=== PATIENT | male | born 1960 | race Caucasian/White ===

== ENCOUNTER 2021-02-09 09:04 | Day surgery (SDC) | payer OTHER ==
--- NOTE | 2021-02-08 11:27 | HP ---
DATE OF SURGERY: 02/09/2021 HISTORY OF PRESENT ILLNESS: The patient presents for colonoscopy. The patient had a scope about ten years ago. He denies any symptoms currently. He has no family history of colon cancer. PAST MEDICAL HISTORY: Hyperlipidemia, hypertension, diabetes, multiple sclerosis (MS). PAST SURGICAL HISTORY: Appendectomy. Tonsillectomy. ALLERGIES: NKDA. MEDICATIONS: Testosterone, metformin, lisinopril, atorvastatin, anastrozole. FAMILY HISTORY: Diabetes, breast cancer, chronic obstructive pulmonary disease. SOCIAL HISTORY: None. REVIEW OF SYSTEMS: CONSTITUTIONAL: Denies fever or chills. CHEST: Denies shortness of breath. CVS: Denies chest pain. ABDOMEN: Denies abdominal pain, nausea, vomiting, diarrhea, constipation or rectal bleeding. PHYSICAL EXAMINATION: GENERAL: No acute distress. CHEST: Nonlabored. No shortness of breath. CVS: Regular rate and rhythm. ABDOMEN: Soft, nontender. IMPRESSION: Screening. PLAN: Colonoscopy with Dr. Lewis Villanueva. As dictated by Promise Conteh NP.
[~2021-02-09 09:04] MED LIST: Lactated Ringers 1,000 ML IV SCH
[2021-02-09] MEDS ORDERED: DIPRIVAN 200 MG/20 ML IV ONE ×2 (11:01→11:24)
[2021-02-09 12:11] VITALS: O2SAT 98
[2021-02-09 12:13] VITALS: BP 110/62; PULSE 58
--- NOTE | 2021-02-09 12:55 | OP ---
SURGERY DATE/TIME: 02/09/2021 1100 PREOPERATIVE DIAGNOSIS: Screening. POSTOPERATIVE DIAGNOSIS: Redundant colon otherwise normal. PROCEDURE: Colonoscopy complete to cecum. SURGEON: Lewis Villanueva M.D. ANESTHESIA: MAC. COMPLICATIONS: None. CONDITION: Stable. INDICATION: A patient requiring evaluation. DESCRIPTION OF PROCEDURE: Taken to endoscopy. Left lateral decubitus position. Anal digital examination satisfactory. Scope introduced. It buckled quite a bit in the sigmoid this was able to be lightly held, moderately held at times. Ascending, splenic, transverse. After some withdrawal and re-advancement and patience, the right side was able to be cannulated all the way down into base of cecum. Base of the cecum, ileocecal valve was normal. Ascending, hepatic, transverse, splenic, descending, sigmoid, rectum, anus there was very light diverticulosis of the sigmoid basically normal colon other than being redundant. Five year follow up is suggested.
== END 2021-02-09 12:17 | disposition home or self-care (01) ==
LOC: SDC 09:04
PROVIDERS: ATTEND Surgery
DX: Z12.11 Encounter for screening for malignant neoplasm of colon (principal); K57.30 Diverticulosis of large intestine without perforation or abscess without bleeding; E11.9 Type 2 diabetes mellitus without complications; Z79.899 Other long term (current) drug therapy
CPT/HCPCS: 82947; J2704

== ENCOUNTER 2021-05-03 05:49 | Emergency (ER) | payer BC, OTHER ==
[2021-05-03] MEDS ORDERED: SUBLIMAZE 100 MCG/2 ML IV ONE (06:25)
[2021-05-03] MEDS ORDERED: Zofran 4 MG/2 ML VIAL IV ONE (06:25)
[2021-05-03] MEDS ORDERED: Zofran 4 MG/2 ML VIAL ONE (06:28)
[2021-05-03] MEDS ORDERED: SUBLIMAZE 100 MCG/2 ML ONE (06:30)
--- NOTE | 2021-05-03 06:33 | ERPHSYRPT ---
- History of Present Illness Historian: patient, other (Spouse) Exam Limitations: no limitations Patient Subjective Stated Complaint: pt states he has been having pain in his lt side for last 2 days. today pain has increased. pain in lt side below ribs and at times radiating around to rt abd Triage Nursing Assessment: pt alert and oriented, answers questions approp.pt am bulatory with steady gait noted. respirations nonlabored with lungs cta. abd soft and nontender with bowel sounds noted x4 quads. urine yellow and clear. pt reports no diff urinating. Timing/Duration: other Activities at Onset: rest Quality: sharpness Pain Radiation: flank (L flank) Severity of Pain-Max: severe Severity of Pain-Current: mild Modifying Factors: Improves With: nothing Associated Symptoms: neck pain, No chest pain, No diaphoresis, No diarrhea, No fever/chills, No fatigue, No headache, No heartburn, No loss of appetite, No nausea, No rash, No shortness of breath, No syncope, No vomiting, No weakness Previous symptoms: no prior history Hx Tetanus, Diphtheria Vaccination/Date Given: Yes Hx Influenza Vaccination/Date Given: Yes Hx Pneumococcal Vaccination/Date Given: No Immunizations Up to Date: Yes <ELVA MAYA - Last Filed: 05/03/21 07:05> <ADELA RAMIREZ - Last Filed: 05/03/21 09:09> - History of Present Illness Physician History: 60 yo wm w L flank pain x 2days. Pain is sharp,3 out of 10, and nothing makes better-worse. He has never had the pain before and denies N/V/D/dysuria/h ematuria. Pt is fully vaccinated but has a mild cough. (ELVA MAYA) Allergies/Adverse Reactions: No Known Drug Allergies Allergy (Verified 05/03/21 06:12) Home Medications: Anastrozole 0.5 mg PO WEEKLY 09/19/20 [History] Multivitamin 1 each PO DAILY 09/19/20 [History] Atorvastatin Calcium [Lipitor 20MG Tablet] 20 mg PO DAILY 02/02/21 [History] Metformin HCl 500 mg [Glucophage 500 MG] 500 mg PO DAILY 02/02/21 [History] lisinopriL [Zestril] 2.5 mg PO DAILY 02/09/21 [History] Ocrelizumab [Ocrevus] 300 mg IV UD 03/06/21 [History] Testosterone Enanthate [Xyosted] 24 mg SQ WEEKLY 03/06/21 [History] Travel Risk - International Travel Have you traveled outside of the country in past 3 weeks: No - Coronavirus Screening Are you exhibiting any of the following symptoms?: No Close contact with a COVID-19 positive Pt in past 14-21 Days: No - Vaccine Status Have you recieved a Covid-19 vaccination: Yes 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: [employer] <ELVA MAYA - Last Filed: 05/03/21 07:05> - Review of Systems Constitutional: No Symptoms Eyes: No Symptoms Ears, Nose, & Throat: No Symptoms Respiratory: No Symptoms, Cough Cardiac: No Symptoms Abdominal/Gastrointestinal: No Symptoms Genitourinary Symptoms: No Symptoms, Flank Pain Musculoskeletal: No Symptoms Skin: No Symptoms Neurological: No Symptoms Psychological: No Symptoms Endocrine: No Symptoms Hematologic/Lymphatic: No Symptoms Immunological/Allergic: No Symptoms <ELVA MAYA - Last Filed: 05/03/21 07:05> - Past Medical History Pertinent Past Medical History: Yes Neurological History: Other ENT History: No Pertinent History Cardiac History: No Pertinent History Respiratory History: No Pertinent History Endocrine Medical History: No Pertinent History Musculoskeletal History: No Pertinent History GI Medical History: No Pertinent History History: No Pertinent History Psycho-Social History: No Pertinent History Male Reproductive Disorders: No Pertinent History Other Medical History: MS dx in 2009, bph, mild renal insuff, pre-diabetic - Past Surgical History Past Surgical History: Yes Neuro Surgical History: No Pertinent History Cardiac: No Pertinent History Respiratory: No Pertinent History Gastrointestinal: Appendectomy Genitourinary: No Pertinent History Musculoskeletal: Orthopedic Surgery Male Surgical History: No Pertinent History Other Surgical History: C3 vertebra removed - Social History Smoking Status: Never smoker Exposure to second hand smoke: No Drug Use: none Patient Lives Alone: No <ELVA MAYA - Last Filed: 05/03/21 07:05> - Physical Exam General Appearance: no apparent distress Eye Exam: PERRL/EOMI, eyes nml inspection Ears, Nose, Throat Exam: normal ENT inspection, TMs normal, pharynx normal, moist mucous membranes Neck Exam: No meningismus, No mass, No Brudzinski, No Kernig's Respiratory Exam: crackles/rales (L base), No respiratory distress Cardiovascular Exam: regular rate/rhythm, normal heart sounds, normal peripheral pulses, No murmur Gastrointestinal/Abdomen Exam: soft, normal bowel sounds Back Exam: CVA tenderness (Mild Left) Extremity Exam: normal inspection, normal range of motion Neurologic Exam: alert, oriented x 3, cooperative, 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 as tested, normal mood/affect, sensation nml, No motor deficits, No sensory deficit Skin Exam: normal color, warm, dry Lymphatic Exam: No adenopathy SpO2 Interpretation: normal SpO2: 100 O2 Delivery: Room Air <ELVA MAYA - Last Filed: 05/03/21 07:05> - Nursing Vital Signs Nursing Vital Signs: Initial Vital Signs Temperature 97.8 F 05/03/21 05:56 Pulse Rate 72 05/03/21 05:56 Respiratory Rate 16 05/03/21 05:56 Blood Pressure 113/65 05/03/21 05:56 O2 Sat by Pulse Oximetry 100 05/03/21 05:56 Pain Scale Pain Intensity 2 WNL (ELVA MAYA) - Course Nursing assessment & vital signs reviewed: Yes - Radiology Exams Chest X-ray Interpretation: Interpreted by me (NAD) <ELVA MAYA - Last Filed: 05/03/21 07:05> Ordered Tests: Active Orders 24 hr Category Date Time Status ABDOMEN AND PELVIS W CONTRAST [CT] Stat Exams 05/03/21 07:12 Completed CHEST 1 VIEW (PORTABLE) Stat Exams 05/03/21 06:32 Taken CHEST WITH CONTRAST [CT] Stat Exams 05/03/21 07:11 Completed AMYLASE Stat Lab 05/03/21 05:30 Completed CBC W DIFF Stat Lab 05/03/21 05:30 Completed CMP Stat Lab 05/03/21 05:30 Completed D-DIMER QUANTITATIVE Stat Lab 05/03/21 05:30 Completed LIPASE Stat Lab 05/03/21 05:30 Completed TROPONIN Q3H Lab 05/03/21 05:30 Completed TROPONIN Q3H Lab 05/03/21 08:27 Received TROPONIN Q3H Lab 05/03/21 12:30 Ordered TROPONIN Q3H Lab 05/03/21 15:30 Ordered TROPONIN Q3H Lab 05/03/21 18:30 Ordered UA W/RFX UR CULTURE Stat Lab 05/03/21 06:36 Completed Medication Summary Discontinued Medications Generic Name Dose Route Start Last Admin Trade Name Marcos PRN Reason Stop Dose Admin Fentanyl Citrate 25 mcg 05/03/21 06:25 05/03/21 06:33 Fentanyl Citrate 100 Mcg/2 Ml* Vial IV 05/03/21 06:26 25 mcg STAT ONE Administration Fentanyl Citrate Confirm 05/03/21 06:30 Fentanyl Citrate 100 Mcg/2 Ml* Vial Administered 05/03/21 06:31 Dose 100 mcg .ROUTE .STK-MED ONE Ondansetron HCl 4 mg 05/03/21 06:25 05/03/21 06:33 Ondansetron Hcl 4 Mg/2 Ml Vial IV 05/03/21 06:26 4 mg STAT ONE Administration Ondansetron HCl Confirm 05/03/21 06:28 Ondansetron Hcl 4 Mg/2 Ml Vial Administered 05/03/21 06:29 Dose 4 mg .ROUTE .STK-MED ONE Lab/Rad Data: Laboratory Result Diagrams 05/03/21 05:30 05/03/21 05:30 Laboratory Results 05/03/21 05/03/21 05/03/21 Range/Units 06:36 05:30 05:30 WBC (4.0-10.5) K/mm3 RBC (4.1-5.6) M/mm3 Hgb (12.5-18.0) gm/dl Hct (42-50) % MCV (78-100) fl MCH (26-32) pg MCHC (32-36) g/dl RDW (11.5-14.0) % Plt Count (150-450) K/mm3 MPV (7.5-11.0) fl Gran % (36.0-66.0) % Eos # (Auto) (0-0.5) Absolute Lymphs (auto) (1.0-4.6) Absolute Monos (auto) (0.0-1.3) Lymphocytes % (24.0-44.0) % Monocytes % (0.0-12.0) % Eosinophils % (0.00-5.0) % Basophils % (0.0-0.4) % Absolute Granulocytes (1.4-6.9) Basophils # (0-0.4) D-Dimer 863 H* (215-500) ng/mL Sodium (137-145) mmol/L Potassium (3.5-5.1) mmol/L Chloride (98-107) mmol/L Carbon Dioxide (22-30) mmol/L Anion Gap (5-15) MEQ/L BUN (9-20) mg/dL Creatinine (0.66-1.25) mg/dL Estimated GFR ML/MIN Glucose (74-106) mg/dL Calcium (8.4-10.2) mg/dL Total Bilirubin (0.2-1.3) mg/dL AST (17-59) U/L ALT (0-50) U/L Alkaline Phosphatase (38-126) U/L Troponin I < 0.012 (0.000-0.034) ng/mL Serum Total Protein (6.3-8.2) g/dL Albumin (3.5-5.0) g/dL Amylase (30-110) U/L Lipase (23-300) U/L Urine Color YELLOW (YELLOW) Urine Appearance CLEAR (CLEAR) Urine pH 5.0 (5-6) Ur Specific [place] 1.023 (1.005-1.025) Urine Protein NEGATIVE (Negative) Urine Ketones NEGATIVE (NEGATIVE) Urine Blood NEGATIVE (0-5) Cesar/ul Urine Nitrite NEGATIVE (NEGATIVE) Urine Bilirubin NEGATIVE (NEGATIVE) Urine Urobilinogen NEGATIVE (0-1) mg/dL Ur Leukocyte Esterase NEGATIVE (NEGATIVE) Urine WBC (Auto) NONE (0-5) /HPF Urine RBC (Auto) NONE (0-2) /HPF U Epithel Cells (Auto) NONE (FEW) /HPF Urine Bacteria (Auto) NONE SEEN (NEGATIVE) /HPF Urine Mucus (Auto) SLIGHT (NEGATIVE) /HPF Urine Culture Reflexed NO (NO) Urine Glucose NEGATIVE (NEGATIVE) mg/dL 05/03/21 05/03/21 Range/Units 05:30 05:30 WBC 10.5 (4.0-10.5) K/mm3 RBC 4.32 (4.1-5.6) M/mm3 Hgb 12.6 (12.5-18.0) gm/dl Hct 38.4 L (42-50) % MCV 88.9 (78-100) fl MCH 29.2 (26-32) pg MCHC 32.8 (32-36) g/dl RDW 15.6 H (11.5-14.0) % Plt Count 286 (150-450) K/mm3 MPV 10.5 (7.5-11.0) fl Gran % 66.7 H (36.0-66.0) % Eos # (Auto) 0.34 (0-0.5) Absolute Lymphs (auto) 1.88 (1.0-4.6) Absolute Monos (auto) 1.24 (0.0-1.3) Lymphocytes % 17.9 L (24.0-44.0) % Monocytes % 11.8 (0.0-12.0) % Eosinophils % 3.2 (0.00-5.0) % Basophils % 0.4 (0.0-0.4) % Absolute Granulocytes 6.98 H (1.4-6.9) Basophils # 0.04 (0-0.4) D-Dimer (215-500) ng/mL Sodium 141 (137-145) mmol/L Potassium 4.9 (3.5-5.1) mmol/L Chloride 104 (98-107) mmol/L Carbon Dioxide 30 (22-30) mmol/L Anion Gap 11.9 (5-15) MEQ/L BUN 24 H (9-20) mg/dL Creatinine 1.38 H (0.66-1.25) mg/dL Estimated GFR 55.5 ML/MIN Glucose 90 (74-106) mg/dL Calcium 9.1 (8.4-10.2) mg/dL Total Bilirubin 0.60 (0.2-1.3) mg/dL AST 26 (17-59) U/L ALT 30 (0-50) U/L Alkaline Phosphatase 89 (38-126) U/L Troponin I (0.000-0.034) ng/mL Serum Total Protein 6.5 (6.3-8.2) g/dL Albumin 3.7 (3.5-5.0) g/dL Amylase 76 (30-110) U/L Lipase 111 (23-300) U/L Urine Color (YELLOW) Urine Appearance (CLEAR) Urine pH (5-6) Ur Specific [place] (1.005-1.025) Urine Protein (Negative) Urine Ketones (NEGATIVE) Urine Blood (0-5) Cesar/ul Urine Nitrite (NEGATIVE) Urine Bilirubin (NEGATIVE) Urine Urobilinogen (0-1) mg/dL Ur Leukocyte Esterase (NEGATIVE) Urine WBC (Auto) (0-5) /HPF Urine RBC (Auto) (0-2) /HPF U Epithel Cells (Auto) (FEW) /HPF Urine Bacteria (Auto) (NEGATIVE) /HPF Urine Mucus (Auto) (NEGATIVE) /HPF Urine Culture Reflexed (NO) Urine Glucose (NEGATIVE) mg/dL <ELVA MAYA - Last Filed: 05/03/21 07:05> - Progress Progress: improved, pain not gone completely, re-examined Counseled pt/family regarding: lab results, diagnosis, need for follow-up, rad results <ADELA RAMIREZ - Last Filed: 05/03/21 09:09> - Progress Progress Note: 05/03/21 06:58 25umg IV Fentanyl/4mg IV Zofran 05/03/21 07:05 Care turned over to Dr. Ramirez at 7:00AM (ELVA MAYA) 05/03/21 09:03 Patient is checked out to me at shift change from Dr. Schwab with pending work- up. Patient presented with left flank pain. He is given fentanyl, on my evaluation feeling better. Abdominal exam is soft with minimal tenderness in left flank without any guarding or rebound. Lungs has scattered Rales especially on the left side and maintaining oxygen saturation around 99% on room air, not in any distress at all. Has elevated D-dimer, CT chest abdomen pelvis is obtained which ruled out pulmonary embolism, ureterolithiasis or any other acute intra-abdominal findings but does have bilateral patchy airspace opacities suspicious of COVID-19. COVID-19 test is obtained and pending. Patient is asymptomatic otherwise. Do not think he needs any further work-up, will give symptomatic treatment with [place] to go home to take as needed as patient does have CKD and not an ideal candidate for NSAIDs. Discussed signs symptoms of worsening needing return to ER but patient seems understanding. (ADELA RAMIREZ) <ELVA MAYA - Last Filed: 05/03/21 07:05> - Departure Departure Disposition: Home Critical Care Time: No <ADELA RAMIREZ - Last Filed: 05/03/21 09:09> - Departure Clinical Impression: Left flank pain, Suspected COVID-19 virus infection Condition: Stable Referrals: ERIC QUIÑONES [Primary Care Provider] - Follow up/PCP as directed (In 12 days for reevaluation) Instructions: Flank Pain Additional Instructions: Take pain medications as needed. Follow-up with primary care for reevaluation. Return to ER if having difficulty breathing, chest pain palpitations, persistent high-grade fever chills, worsening abdominal pain nausea vomiting etc. Prescriptions: Hydrocodone/Acetaminophen [Hydrocodone-Acetamin 5-325 mg] 1 tab PO Q6HPRN PRN 3 Days #12 tablet MDD 4 PRN Reason: Pain
[2021-05-03 06:43] LABS: Absolute Neutrophil Ct (ANC) 6.98 (1.4-6.9); Basophil (Absolute #) 0.04 (0-0.4); Eosinophil % 3.2 % (0.00-5.0); Eosinophil (Absolute #) 0.34 (0-0.5); Hematocrit 38.4 % (42-50); Hemoglobin 12.6 gm/dl (12.5-18.0); Lymphocyte (Absolute #) 1.88 (1.0-4.6); Lymphocytes % 17.9 % (24.0-44.0); Mean Cell Volume 88.9 fl (78-100); Mean Corpuscular Hemoglobin 29.2 pg (26-32); Mean Corpuscular Hgb Concent. 32.8 g/dl (32-36); Mean Platelet Volume 10.5 fl (7.5-11.0); Monocyte (Absolute #) 1.24 (0.0-1.3); Monocytes % 11.8 % (0.0-12.0); Neutrophil % 66.7 % (36.0-66.0); Platelet Count 286 K/mm3 (150-450); Red Blood Count 4.32 M/mm3 (4.1-5.6); Red Cell Distribution Width 15.6 % (11.5-14.0); White Blood Count 10.5 K/mm3 (4.0-10.5)
[2021-05-03 06:45] LABS: Appearance CLEAR (CLEAR); Bilirubin NEGATIVE (NEGATIVE); Blood NEGATIVE Ery/ul (0-5); Glucose NEGATIVE (NEGATIVE); Ketones NEGATIVE (NEGATIVE); Leukocyte Esterase NEGATIVE (NEGATIVE); Mucus SLIGHT /HPF (NEGATIVE); Nitrite NEGATIVE (NEGATIVE); Protein,Urine Dip NEGATIVE (Negative); Specific Gravity 1.023 (1.005-1.025); Urobilinogen NEGATIVE mg/dL (0-1)
[2021-05-03 06:51] LABS: Bacteria NONE SEEN /HPF (NEGATIVE)
[2021-05-03 07:10] LABS: ALBUMIN 3.7 g/dL (3.5-5.0); ANION GAP 11.9 MEQ/L (5-15); BILIRUBIN,TOTAL 0.6 mg/dL (0.2-1.3); Calcium 9.1 mg/dL (8.4-10.2); Creatinine 1 1.38 mg/dL (0.66-1.25); EST GLOMERULAR FILTRATION RATE 55.5 ML/MIN; Potassium 4.9 mmol/L (3.5-5.1); Total Protein 6.5 g/dL (6.3-8.2)
--- NOTE | 2021-05-03 08:40 | XRAY ---
Indication: Left flank pain. Elevated d-dimer. Multiple contiguous images obtained through the chest using 100 cc Isovue 370 contrast and PE protocol. Comparison: None There is good opacification of the pulmonary arteries to include the lobar and segmental branches. No pulmonary embolus. Heart is not enlarged. Aorta is normal in course and caliber. No pathologic mediastinal/hilar lymphadenopathy. Lungs demonstrates minimal bibasilar dependent atelectasis. There are mild patchy groundglass airspace opacities left greater than right without consolidation/effusion. Bony thorax intact with mild degenerative changes throughout the spine. CT abdomen/pelvis reported separately. Impression: 1. Negative pulmonary embolus. 2. Mild bilateral patchy groundglass airspace disease. Rule out Covid 19 pneumonia.
--- NOTE | 2021-05-03 08:44 | XRAY ---
Indication: Left flank pain 3 days. Multiple contiguous axial images obtained through the abdomen and pelvis using 100 cc Isovue 370 contrast. Comparison: None CT chest reported separately. Noncontrasted stomach and bowel loops nonobstructed. Normal appendix moderate fecal debris in the right hemicolon. No free fluid/air. A few small bilateral renal cortical cysts, largest left mid kidney measuring 1.1 cm. Remaining liver, gallbladder, pancreas, spleen, adrenal glands, kidneys, ureters, and bladder are unremarkable. Minimal aortic ossifications. No AAA or pathologic retroperitoneal lymphadenopathy. Osseous structures intact. No ventral or inguinal hernias. Impression: 1. Bilateral renal cysts. 2. Remaining CT abdomen/pelvis with contrast exam is negative.
[2021-05-03 09:03] VITALS: BP 98/62; PULSE 68; O2SAT 97
--- NOTE | 2021-05-03 09:10 | XRAY ---
Indication: Cough. Back pain. Comparison: None Portable chest demonstrates subtle CT proven patchy groundglass airspace disease, left greater than right without consolidation/large effusion. Remaining heart and bony thorax unremarkable.
[2021-05-03 09:46] LABS: INFLUENZA A NEGATIVE (NEGATIVE); INFLUENZA B NEGATIVE (NEGATIVE); RESPIRATORY SYNCTIAL VIRUS NEGATIVE (Negative); SARS-CoV-2 Xpert Express NEGATIVE (NEGATIVE)
== END 2021-05-03 09:46 | disposition home or self-care (01) ==
LOC: ED 05:49
DX: R10.12 Left upper quadrant pain (principal); M79.12 Myalgia of auxiliary muscles, head and neck; R05.9 Cough, unspecified; R73.03 Prediabetes; Z79.84 Long term (current) use of oral hypoglycemic drugs; N18.9 Chronic kidney disease, unspecified; Z79.891 Long term (current) use of opiate analgesic; Z79.899 Other long term (current) drug therapy
CPT/HCPCS: 0241U; 36000; 36415; 71045; 71260; 74177; 80053; 81001; 82150; 83690; 84484; 85025; 85379; 96374; 96375; 99284; J2405; J3010